=== PATIENT | male | born 1980 | race African-American/Black ===

== ENCOUNTER 2024-05-30 09:31 | Inpatient (IN) | payer OTHER, SELFPAY ==
[2024-05-30 10:20] LABS: ALT (SGPT) 18 U/L (8-55); AST (SGOT) 25 U/L (5-34); Albumin 3.7 g/dL (3.5-5.0); Alkaline Phosphatase 79 U/L (40-110); Anion Gap 16 mmol/L (10-20); BUN (Urea Nitrogen) 12 mg/dL (8.9-20.6); Calc. Creatinine Clearance 0 mL/min (70-130); Calcium 8.9 mg/dL (7.8-10.44); Carbon Dioxide 26 mmol/L (22-29); Chloride 99 mmol/L (98-107); Estimated GFR 67; Globulin 3.4 g/dL (2.4-3.5); Glucose 140 mg/dL (70-105); Potassium 3.6 mmol/L (3.5-5.1); Protein, Total 7.1 g/dL (6.0-8.3); Sodium 137 mmol/L (136-145)
[2024-05-30 10:21] LABS: #Basophils 0.05 10x3/uL (0.0-0.2); #Eosinophils Less than 0.03 10x3/uL (0.0-0.7); %Basophils 0.8 % (0.0-1.0); %Eosinophils 0.2 % (0.0-10.0); %Lymphocytes 6.2 % (21.0-51.0); %Monocytes 8.1 % (0.0-10.0); %Neutrophils 84.4 % (42.0-75.0); Hemoglobin 13.6 g/dL (14.0-18.0); Mean Corpuscular HGB CONC 31.6 g/dL (32.0-36.0); Mean Corpuscular Hemoglobin 21.8 pg (27.0-31.0); Platelet Count 266 10x3/uL (130-400); RBC Distribution Width 19.8 % (11.5-14.5); Red Blood Cell (RBC) Count 6.23 mill/uL (4.70-6.10)
[2024-05-30 10:40] LABS: Troponin I 0.011 ng/mL (< 0.028)
[2024-05-30 10:42] LABS: Bacteria/HPF None Seen HPF (None Seen); Bilirubin Negative (Negative); Blood, Urine Negative (Negative); CAUTI Indications for Culture Acute Hematuria; Clarity Clear (Clear); Glucose, Urine (Dipstick) Greater than 1000 mg/dL (Negative); Ketone, Urine 20 mg/dL (Negative); Leukocyte Negative Leu/uL (Negative); Nitrite Negative (Negative); Protein, Urine (Dipstick) 50 mg/dL (Neg-Trace); RBC/HPF None Seen HPF (0-3); Specific Gravity, Urine 1.035 (1.002-1.036); Squamous Epithelial None Seen HPF (0-3); WBC/HPF 0-3 HPF (0-3); pH, Urine 6.5 (5.0-9.0)
[2024-05-30 10:52] LABS: INR-International Normal Ratio 1.4; PTT 30.6 sec (22.9-36.1); Prothrombin Time 17.1 sec (12.0-14.7)
[2024-05-30 11:02] LABS: Urine Culture Reflex No No
[2024-05-30 11:08] LABS: Amphetamine Not Detected (NotDetected); Barbiturates Screen Not Detected (NotDetected); Benzodiazepine Screen Not Detected (NotDetected); Cocaine Metabolite Screen Not Detected (NotDetected); Methadone Not Detected (NotDetected); Methamphetamine Not Detected (NotDetected); Opiate Screen Not Detected (NotDetected); Oxycodone Screen Not Detected (NotDetected); Phencyclidine (PCP) Not Detected (NotDetected); THC/Cannabinoid Screen Not Detected (NotDetected); Tricyclic Screen Not Detected (NotDetected)
[2024-05-30] MEDS ORDERED: Oseltamivir 75 MG CAP ONE (11:14)
[2024-05-30] MEDS ORDERED: Lorazepam 2 MG/ML VIAL ONE (11:15)
[2024-05-30] MEDS ORDERED: cefTRIAXone (ROCEPHIN) 1 GM VIAL ONE (11:16)
[2024-05-30] MEDS ORDERED: Ipratropium/Albuterol 3 ML NEB ONE (11:23)
[2024-05-30] MEDS ORDERED: Furosemide 40 MG (4 mL) VIAL ONE (11:23)
[2024-05-30 11:24] LABS: Anisocytosis MODERATE=16-30 cells HPF (0-5); Elliptocytes SLIGHT = 2-5 cells HPF (0-1); Microcytosis SLIGHT = 6-15 cells HPF (0-5); Ovalocytes MODERATE= 6-15 cells HPF (0-1); Platelet Adequacy Comment Platelets Normal; Poikilocytosis MODERATE=16-30 cells HPF (0-5); Polychromasia MODERATE = 3-4 cells HPF (0-2); Schistocytes SLIGHT = 2-5 cells HPF (0-1); Target Cells MODERATE= 6-15 cells HPF (0-1)
[2024-05-30 12:02] LABS: Acetaminophen Less than 10 mcg/mL (Less than 10); Alcohol Less than 10.0 mg/dL (Less than 10); Salicylate Less than 8.0 mg/dL (Less than 8.0)
[2024-05-30 13:05] LABS: Lactic Acid 3.84 mmol/L (0.5-2.2)
[2024-05-30 13:14] LABS: Actual Bicarbonate (HCO3a) 26.9 mEq/L (22-28); Analyzer IN Cardio ER; CO2 Tension 38.7 mmHg (35.0-45.0); Calcium, Ionized (arterial) 1.12 mmol/L (1.12-1.30); Carboxyhemoglobin (COHb) 1.9 gm% (0.0-3.0); Hematocrit-ABG 43 % (42.0-52.0); Hemoglobin (Hb) 14.5 g/dL (14.0-18.0); Potassium - ABG Lab 3.51 mmol/L (3.70-5.30)
[2024-05-30 13:18] LABS: ALV-art Gradient 56.755 mmHg (0-20); O2 Tension (PaO2), arterial 44.6 mmHg (80.0-100.0); Puncture Site Left Radial artery
[2024-05-30] MEDS ORDERED: Acetaminophen 650 MG Suppository PR PRN (14:27)
[2024-05-30] MEDS ORDERED: Ondansetron ODT 4 MG TAB PO PRN (14:27)
[2024-05-30 15:19] LABS: Lactic Acid 2.32 mmol/L (0.5-2.2)
[2024-05-30] MEDS ORDERED: Iopamidol-370 76% 500 ML MDV (1 ML CHARGE) ONE (15:29)
[2024-05-30] MEDS ORDERED: Ipratropium/Albuterol 3 ML NEB NEB PRN (15:55)
[2024-05-30] MEDS ORDERED: Insulin Regular, Human 100 UNIT/ML 10 ML VIAL SC PRN (16:00)
[2024-05-30] MEDS ORDERED: Dextrose 50% Abboject 50 ML SYRINGE SLOW IVP PRN (16:00)
[2024-05-30] MEDS ORDERED: Dextrose 5% in Water 1,000 ML IV PRN (16:00)
[2024-05-30] MEDS ORDERED: Glucagon 1 MG/ML KIT IM PRN (16:00)
[2024-05-30] MEDS: Azithromycin 500 MG in Sodium Chloride 0.9% 250 ML 250 ML IVPB SCH (16:16)
[2024-05-30] MEDS: Sodium Chloride 0.9% 500 ML IV SCH (16:30)
[2024-05-30] MEDS: Insulin Regular, Human 100 UNIT/ML 10 ML VIAL SC PRN (17:40)
[2024-05-30] MEDS: Guaifenesin DM 100-10/5 ML UDCUP PO PRN (20:59)
[2024-05-30] MEDS ORDERED: Oseltamivir 75 MG CAP PO SCH ×2 (21:00)
[2024-05-31 04:31] LABS: #Basophils 0.04 10x3/uL (0.0-0.2); #Eosinophils Less than 0.03 10x3/uL (0.0-0.7); %Basophils 0.7 % (0.0-1.0); %Monocytes 9.7 % (0.0-10.0); %Neutrophils 75.1 % (42.0-75.0); Hematocrit 38.9 % (42.0-52.0); Hemoglobin 12.6 g/dL (14.0-18.0); Mean Corpuscular HGB CONC 32.4 g/dL (32.0-36.0); Mean Corpuscular Hemoglobin 21.8 pg (27.0-31.0); Mean Corpuscular Volume 67.2 fL (78.0-98.0); Platelet Count 210 10x3/uL (130-400); Red Blood Cell (RBC) Count 5.79 mill/uL (4.70-6.10)
[2024-05-31 04:37] LABS: Anion Gap 18 mmol/L (10-20); BUN (Urea Nitrogen) 14 mg/dL (8.9-20.6); Calc. Creatinine Clearance 95 mL/min (70-130); Calcium 8.5 mg/dL (7.8-10.44); Carbon Dioxide 19 mmol/L (22-29); Chloride 99 mmol/L (98-107); Estimated GFR 69; Glucose 125 mg/dL (70-105); Potassium 3.9 mmol/L (3.5-5.1); Sodium 132 mmol/L (136-145)
[2024-05-31] MEDS: Furosemide 40 MG (4 mL) VIAL SLOW IVP SCH (09:05)
[2024-05-31] MEDS: Enoxaparin 40 MG (0.4 mL) SYRINGE SC SCH (09:05)
[2024-05-31] MEDS: Pantoprazole 40 MG DR.TAB PO SCH (09:05)
[2024-05-31] MEDS: cefTRIAXone\\ROCEPHIN 1 GM in Sodium Chloride 0.9% 100 ML IVPB SCH (12:55)
[2024-05-31 16:38] LABS: Legionella Urinary Ag Negative (Negative)
[2024-05-31 16:39] LABS: Strep pneumo Urine Ag NEGATIVE (NEGATIVE)
[2024-05-31] MEDS: Sodium Chloride 0.9% 1,000 ML IV SCH ×2 (17:26→20:46)
[2024-05-31] MEDS: Piperacillin/Tazobactam 3.375 GM in Sodium Chloride 0.9% 100 ML IVPB SCH ×2 (17:29→21:24)
[2024-05-31 17:59] LABS: Actual Bicarbonate (HCO3v) 22.6 mEq/L (22-28); Calcium, Ionized (venous) 1.07 mmol/L (1.16-1.32); Chloride (VBG) 95 mmol/L (98-106); Hematocrit-VBG 42 % (42.0-52.0); Hemoglobin (Hb) 14.2 g/dL (13.2-17.3); Potassium (VBG) 4.24 mmol/L (3.70-5.30); Sodium 131 mmol/L (133-146); pH (venous) 7.389 (7.32-7.43)
[2024-05-31] MEDS ORDERED: Piperacillin/Tazobactam 4.5 GM in Sodium Chloride 0.9% 100 ML IVPB SCH (18:00)
[2024-05-31] MEDS: Lidocaine 2% Viscous Solution 20 ML, Aluminum & Magnesium Hydroxide 30 ML, Donnatal Eli... SSW SCH (18:02)
[2024-05-31] MEDS: Vancomycin (BATCH) 2.5 GM in Premix 1 BAG IVPB SCH (18:04)
[2024-05-31 18:13] LABS: Hematocrit 40.6 % (42.0-52.0); Hemoglobin 12.8 g/dL (14.0-18.0); Mean Corpuscular HGB CONC 31.5 g/dL (32.0-36.0); Mean Corpuscular Hemoglobin 21.7 pg (27.0-31.0); Mean Corpuscular Volume 68.9 fL (78.0-98.0); Platelet Count 220 10x3/uL (130-400); RBC Distribution Width 19.2 % (11.5-14.5); Red Blood Cell (RBC) Count 5.89 mill/uL (4.70-6.10)
[2024-05-31 18:14] LABS: INR-International Normal Ratio 1.6; PTT 38.5 sec (22.9-36.1); Prothrombin Time 18.8 sec (12.0-14.7)
[2024-05-31 18:21] LABS: ALT (SGPT) 29 U/L (8-55); AST (SGOT) 66 U/L (5-34); Albumin 3.2 g/dL (3.5-5.0); Alkaline Phosphatase 74 U/L (40-110); Anion Gap 16 mmol/L (10-20); BUN (Urea Nitrogen) 18 mg/dL (8.9-20.6); Bilirubin, Total 0.9 mg/dL (0.2-1.2); Calc. Creatinine Clearance 82 mL/min (70-130); Calcium 8.5 mg/dL (7.8-10.44); Carbon Dioxide 21 mmol/L (22-29); Chloride 98 mmol/L (98-107); Estimated GFR 58; Globulin 3.3 g/dL (2.4-3.5); Glucose 183 mg/dL (70-105); Potassium 4.4 mmol/L (3.5-5.1); Protein, Total 6.5 g/dL (6.0-8.3); Sodium 131 mmol/L (136-145)
[2024-05-31 18:22] LABS: ALT (SGPT) 30 U/L (8-55); AST (SGOT) 66 U/L (5-34); Albumin 3.2 g/dL (3.5-5.0); Alkaline Phosphatase 81 U/L (40-110); Bilirubin, Direct 0.5 mg/dL (0.1-0.3); Bilirubin, Total 0.9 mg/dL (0.2-1.2); Protein, Total 6.4 g/dL (6.0-8.3)
[2024-05-31 18:25] LABS: Troponin I 0.041 ng/mL (< 0.028)
[2024-05-31 18:39] LABS: Amphetamine Not Detected (NotDetected); Barbiturates Screen Not Detected (NotDetected); Benzodiazepine Screen Detected (NotDetected); Cocaine Metabolite Screen Not Detected (NotDetected); Methadone Not Detected (NotDetected); Methamphetamine Not Detected (NotDetected); Opiate Screen Not Detected (NotDetected); Oxycodone Screen Not Detected (NotDetected); Phencyclidine (PCP) Not Detected (NotDetected); THC/Cannabinoid Screen Not Detected (NotDetected); Tricyclic Screen Not Detected (NotDetected)
[2024-05-31] MEDS ORDERED: Lactated Ringer's 1,000 ML IV SCH (19:00)
[2024-05-31] MEDS ORDERED: Vancomycin 1 GM in Premix 1 BAG IVPB SCH (21:00)
[2024-05-31] MEDS ORDERED: Pantoprazole 40 MG DR.TAB PO SCH (21:00)
[2024-05-31] MEDS: Piperacillin/Tazobactam 3.375 GM VIAL ONE (21:08)
[2024-05-31 21:10] LABS: Lactic Acid 1.56 mmol/L (0.5-2.2)
[2024-06-01 04:27] LABS: #Basophils 0.04 10x3/uL (0.0-0.2); #Eosinophils Less than 0.03 10x3/uL (0.0-0.7); %Lymphocytes 27.2 % (21.0-51.0); %Monocytes 6.4 % (0.0-10.0); %Neutrophils 65.1 % (42.0-75.0); Hematocrit 40.3 % (42.0-52.0); Hemoglobin 12.7 g/dL (14.0-18.0); Mean Corpuscular HGB CONC 31.5 g/dL (32.0-36.0); Mean Corpuscular Hemoglobin 21.7 pg (27.0-31.0); Mean Corpuscular Volume 68.9 fL (78.0-98.0); Platelet Count 209 10x3/uL (130-400); RBC Distribution Width 18.6 % (11.5-14.5); Red Blood Cell (RBC) Count 5.85 mill/uL (4.70-6.10)
[2024-06-01 04:40] LABS: Vancomycin, Random 20.4 ug/mL (See Comment)
[2024-06-01 04:50] LABS: Anion Gap 15 mmol/L (10-20); BUN (Urea Nitrogen) 22 mg/dL (8.9-20.6); Calc. Creatinine Clearance 77 mL/min (70-130); Calcium 8.3 mg/dL (7.8-10.44); Carbon Dioxide 22 mmol/L (22-29); Chloride 99 mmol/L (98-107); Estimated GFR 54; Glucose 172 mg/dL (70-105); Iron 16 ug/dL (65-175); Iron Binding Capacity, Total 348 mcg/dL (261-462); Magnesium 1.9 mg/dL (1.6-2.6); Potassium 4.1 mmol/L (3.5-5.1); Sodium 132 mmol/L (136-145)
[2024-06-01 04:54] LABS: ALT (SGPT) 32 U/L (8-55); AST (SGOT) 63 U/L (5-34); Albumin 3.2 g/dL (3.5-5.0); Alkaline Phosphatase 74 U/L (40-110); Bilirubin, Direct 0.6 mg/dL (0.1-0.3); Iron 14 ug/dL (65-175); Iron Binding Capacity, Total 331 mcg/dL (261-462); Protein, Total 6.4 g/dL (6.0-8.3)
[2024-06-01] MEDS: Piperacillin/Tazobactam 3.375 GM VIAL ONE ×2 (06:20→22:10)
[2024-06-01] MEDS ORDERED: Midodrine HCl 5 MG TAB PO SCH (08:45)
[2024-06-01] MEDS ORDERED: DOBUTamine 500 mg/250 ml 250 ML IVPB SCH (09:00)
[2024-06-01] MEDS: Albumin 25% 25 GM (100 mL) BOT IVPB SCH ×2 (10:03→12:01)
[2024-06-01] MEDS: Pantoprazole 40 MG DR.TAB PO SCH (10:04)
[2024-06-01] MEDS: Vancomycin 1 GM in Premix 1 BAG IVPB SCH (10:04)
[2024-06-01] MEDS: Ipratropium/Albuterol 3 ML NEB NEB SCH (11:17)
[2024-06-01] MEDS ORDERED: Milrinone 20 MG in Sodium Chloride 0.9% 100 ML IVPB SCH (12:15)
[2024-06-01] MEDS ORDERED: DOBUTAMINE 500 MG/250 ML ONE (13:36)
[2024-06-01] MEDS: Ondansetron PF 4 MG/2 ML Vial IVP PRN (13:46)
[2024-06-02] MEDS: Albumin 25% 25 GM (100 mL) BOT IVPB SCH (02:51)
[2024-06-02 04:14] LABS: #Basophils 0.03 10x3/uL (0.0-0.2); #Eosinophils Less than 0.03 10x3/uL (0.0-0.7); %Basophils 0.6 % (0.0-1.0); %Lymphocytes 28.8 % (21.0-51.0); %Monocytes 8.1 % (0.0-10.0); %Neutrophils 62.3 % (42.0-75.0); Hematocrit 34.3 % (42.0-52.0); Hemoglobin 10.7 g/dL (14.0-18.0); Mean Corpuscular HGB CONC 31.2 g/dL (32.0-36.0); Mean Corpuscular Hemoglobin 21.5 pg (27.0-31.0); Platelet Count 166 10x3/uL (130-400); RBC Distribution Width 18.2 % (11.5-14.5); Red Blood Cell (RBC) Count 4.97 mill/uL (4.70-6.10)
[2024-06-02 04:31] LABS: Anion Gap 11 mmol/L (10-20); BUN (Urea Nitrogen) 19 mg/dL (8.9-20.6); Calc. Creatinine Clearance 0 mL/min (70-130); Calcium 8.5 mg/dL (7.8-10.44); Carbon Dioxide 23 mmol/L (22-29); Chloride 102 mmol/L (98-107); Estimated GFR 64; Glucose 140 mg/dL (70-105); Magnesium 1.9 mg/dL (1.6-2.6); Potassium 3.1 mmol/L (3.5-5.1); Sodium 133 mmol/L (136-145)
[2024-06-02] MEDS ORDERED: Electrolyte Replacement Protocol FS PRN (08:15)
[2024-06-02] MEDS ORDERED: Electrolyte Replacement Protocol 1 EACH FS SCH (08:15)
[2024-06-02] MEDS ORDERED: Potassium Chloride 20 MEQ in Premix 1 BAG IVPB SCH (08:30)
[2024-06-02] MEDS: Magnesium 2 GM/50 ML(in water) 2 GM in Premix 1 BAG IVPB SCH (09:37)
[2024-06-02] MEDS: Vancomycin 1.5 GRAM/300 ML BAG 1.5 GM in Premix 1 BAG IVPB SCH (10:52)
[2024-06-02] MEDS: Potassium Chloride 20 MEQ in Premix 1 BAG IVPB SCH (10:55)
[2024-06-02] MEDS: Promethazine HCl 25 MG in Sodium Chloride 0.9% 50 ML IVPB PRN (16:58)
[2024-06-02] MEDS: Amiodarone 450 MG in Dextrose 5% in Water 250 ML IVPB SCH (18:57)
[2024-06-02] MEDS: Benzonatate 100 MG CAP PO SCH (18:57)
[2024-06-02] MEDS: Ipratropium/Albuterol 3 ML NEB NEB PRN (23:14)
[2024-06-03] MEDS: Benzocaine/Menthol 1 LOZ LOZ PO PRN (00:51)
[2024-06-03 04:15] LABS: #Basophils 0.03 10x3/uL (0.0-0.2); #Eosinophils Less than 0.03 10x3/uL (0.0-0.7); %Basophils 0.6 % (0.0-1.0); %Lymphocytes 34.5 % (21.0-51.0); %Monocytes 9.4 % (0.0-10.0); %Neutrophils 55.1 % (42.0-75.0); Hematocrit 34.4 % (42.0-52.0); Hemoglobin 11.4 g/dL (14.0-18.0); Mean Corpuscular HGB CONC 33.1 g/dL (32.0-36.0); Mean Corpuscular Hemoglobin 22.1 pg (27.0-31.0); Mean Corpuscular Volume 66.7 fL (78.0-98.0); Platelet Count 163 10x3/uL (130-400); RBC Distribution Width 18.2 % (11.5-14.5); Red Blood Cell (RBC) Count 5.16 mill/uL (4.70-6.10)
[2024-06-03 04:55] LABS: Vancomycin, Random 6.7 ug/mL (See Comment)
[2024-06-03 04:56] LABS: Anion Gap 13 mmol/L (10-20); BUN (Urea Nitrogen) 17 mg/dL (8.9-20.6); Calc. Creatinine Clearance 91 mL/min (70-130); Calcium 8.3 mg/dL (7.8-10.44); Carbon Dioxide 20 mmol/L (22-29); Chloride 103 mmol/L (98-107); Estimated GFR 67; Glucose 133 mg/dL (70-105); Magnesium 2.2 mg/dL (1.6-2.6); Potassium 3.4 mmol/L (3.5-5.1); Sodium 133 mmol/L (136-145)
[2024-06-03 04:57] LABS: ALT (SGPT) 22 U/L (8-55); AST (SGOT) 35 U/L (5-34); Albumin 3.6 g/dL (3.5-5.0); Alkaline Phosphatase 53 U/L (40-110); Protein, Total 6.4 g/dL (6.0-8.3)
[2024-06-03] MEDS: Vancomycin 1.5 GRAM/300 ML BAG 1.5 GM in Premix 1 BAG IVPB SCH (07:03)
[2024-06-03] MEDS: Potassium Chloride 20 MEQ TAB PO SCH (08:25)
[2024-06-03] MEDS: guaiFENesin/Codeine 200 mg/20 mg 10 ml Cup PO PRN (08:47)
[2024-06-03 15:18] LABS: Campy jejuni + coli by PCR Negative (Negative); STEC Shiga Toxin 1+2 Negative (Negative); Salmonella spp. by PCR Negative (Negative); Shigella spp + EIEC by PCR Negative (Negative)
[2024-06-03] MEDS: Benzonatate 100 MG CAP PO PRN (20:34)
[2024-06-04 03:39] LABS: Hematocrit 35.8 % (42.0-52.0); Hemoglobin 11.3 g/dL (14.0-18.0); Mean Corpuscular HGB CONC 31.6 g/dL (32.0-36.0); Mean Corpuscular Hemoglobin 21.6 pg (27.0-31.0); Mean Corpuscular Volume 68.5 fL (78.0-98.0); Platelet Count 167 10x3/uL (130-400); RBC Distribution Width 18.5 % (11.5-14.5); Red Blood Cell (RBC) Count 5.23 mill/uL (4.70-6.10)
[2024-06-04 03:54] LABS: Anion Gap 14 mmol/L (10-20); BUN (Urea Nitrogen) 16 mg/dL (8.9-20.6); Calc. Creatinine Clearance 115 mL/min (70-130); Calcium 8.4 mg/dL (7.8-10.44); Carbon Dioxide 18 mmol/L (22-29); Chloride 105 mmol/L (98-107); Estimated GFR 83; Glucose 148 mg/dL (70-105); Magnesium 1.9 mg/dL (1.6-2.6); Potassium 3.7 mmol/L (3.5-5.1); Sodium 133 mmol/L (136-145)
[2024-06-04 03:59] LABS: Band 1 % (5-11); Eosinophils 10 % (0-10); Hypochromia SLIGHT = 6-15 cells (100X) (0-5/hpf); Lymphocytes 20 % (21-51); Monocytes 3 % (0-10); Neutrophil 62 % (42-75); Ovalocytes SLIGHT = 2-5 cells (100X) (0-1/hpf); Plasma Cells 0 % (0-0); Platelet Adequacy Comment Appears Adequate; Reactive Lymphocytes 4 % (0-10); Target Cells SLIGHT = 2-5 cells (100X) (0-1/hpf); Total Cell Count 100
[2024-06-04] MEDS: Magnesium 2 GM/50 ML(in water) 2 GM in Premix 1 BAG IVPB SCH (07:47)
[2024-06-04] MEDS: Dapagliflozin Propanediol 10 MG TAB PO SCH (12:53)
[2024-06-04] MEDS: Sacubitril 24MG/Valsartan 26 MG TAB PO SCH ×2 (12:53→22:13)
[2024-06-04] MEDS: Vancomycin 1 GM in Premix 1 BAG IVPB SCH (14:54)
[2024-06-04] MEDS: Acetaminophen 325 MG TAB PO PRN (22:14)
[2024-06-05] MEDS: Magnesium 2 GM/50 ML(in water) 2 GM in Premix 1 BAG IVPB SCH (09:42)
[2024-06-05] MEDS: Oseltamivir 75 MG CAP PO SCH (10:53)
[2024-06-05] MEDS: Amiodarone 200 MG TAB PO SCH (21:06)
[2024-06-06 03:59] LABS: Hematocrit 41.4 % (42.0-52.0); Hemoglobin 13.2 g/dL (14.0-18.0); Mean Corpuscular HGB CONC 31.9 g/dL (32.0-36.0); Mean Corpuscular Hemoglobin 21.2 pg (27.0-31.0); Mean Corpuscular Volume 66.3 fL (78.0-98.0); Platelet Count 235 10x3/uL (130-400); Red Blood Cell (RBC) Count 6.24 mill/uL (4.70-6.10)
[2024-06-06 04:40] LABS: Vancomycin, Random 23.1 ug/mL (See Comment)
[2024-06-06 04:43] LABS: BUN (Urea Nitrogen) 5 mg/dL (8.9-20.6); Calc. Creatinine Clearance 143 mL/min (70-130); Calcium 8.5 mg/dL (7.8-10.44); Carbon Dioxide 20 mmol/L (22-29); Estimated GFR 111; Glucose 126 mg/dL (70-105); Magnesium 2.1 mg/dL (1.6-2.6)
[2024-06-06 05:15] LABS: Anisocytosis MODERATE=16-30 cells HPF (0-5); Burr Cells SLIGHT = 2-5 cells HPF (0-1); Large Platelets 66.3 % (0-5); Lymphocytes 7 % (21-51); Microcytosis SLIGHT = 6-15 cells HPF (0-5); Monocytes 7 % (0-10); Neutrophil 84 % (42-75); Nucleated RBC (Manual Ct) 1 % (0); Platelet Adequacy Comment Platelets Normal; Polychromasia SLIGHT = 2-3 cells HPF (0-2); Reactive Lymphocytes 2 % (0-10); Smudge Cells 17.8 %; Spherocytes SLIGHT = 1-5 cells HPF (None Seen); Target Cells SLIGHT = 2-5 cells HPF (0-1)
[2024-06-06 05:35] LABS: Anion Gap 13 mmol/L (10-20); Chloride 109 mmol/L (98-107); Potassium 3.2 mmol/L (3.5-5.1); Sodium 138 mmol/L (136-145)
[2024-06-06] MEDS: Potassium Chloride 20 MEQ TAB PO SCH (08:23)
[2024-06-06] MEDS: Vancomycin 1 GM/200 ML (FROZEN) BAG ONE (13:21)
[2024-06-06 15:30] LABS: Potassium 3.5 mmol/L (3.5-5.1)
[2024-06-06] MEDS: Aspirin 81 mg Enteric Coated Tablet PO SCH (16:26)
[2024-06-06] MEDS: Amoxicillin/Potassium Clav 875 MG TAB PO SCH (20:44)
[2024-06-06] MEDS: Benzonatate 100 MG CAP PO SCH (20:46)
[2024-06-07 04:27] LABS: Magnesium 2.2 mg/dL (1.6-2.6)
[2024-06-07 04:28] LABS: Anion Gap 15 mmol/L (10-20); BUN (Urea Nitrogen) 5 mg/dL (8.9-20.6); Calc. Creatinine Clearance 128 mL/min (70-130); Calcium 8.8 mg/dL (7.8-10.44); Carbon Dioxide 18 mmol/L (22-29); Chloride 109 mmol/L (98-107); Estimated GFR 101; Glucose 188 mg/dL (70-105); Potassium 3.6 mmol/L (3.5-5.1); Sodium 138 mmol/L (136-145)
[2024-06-07 04:34] LABS: Hematocrit 41.2 % (42.0-52.0); Hemoglobin 12.9 g/dL (14.0-18.0); Mean Corpuscular HGB CONC 31.3 g/dL (32.0-36.0); Mean Corpuscular Hemoglobin 21.2 pg (27.0-31.0); Mean Corpuscular Volume 67.7 fL (78.0-98.0); Platelet Count 382 10x3/uL (130-400); RBC Distribution Width 20.2 % (11.5-14.5); Red Blood Cell (RBC) Count 6.09 mill/uL (4.70-6.10)
[2024-06-07 04:36] LABS: #Basophils 0.03 10x3/uL (0.0-0.2); %Basophils 0.3 % (0.0-1.0); %Eosinophils 0.8 % (0.0-10.0); %Lymphocytes 22.6 % (21.0-51.0); %Monocytes 11.5 % (0.0-10.0); %Neutrophils 64.5 % (42.0-75.0)
[2024-06-07] MEDS: Torsemide 20 MG TAB PO SCH (08:19)
[2024-06-07 14:32] VITALS: BMI 30.2
[2024-06-08 12:45] VITALS: BP 115/79; TEMP 98.1
== END 2024-06-08 14:42 | disposition home or self-care (01) | DRG 193 ==
LOC: ERS 09:31 → INTOOBSV 14:28 → OBS 14:28 → OBSVTOIN 15:21 → CCU 15:25 → PCU 05-31 05:48 → IMCU/EMU 06-03 01:37 → PCU 06-05 19:38
PROVIDERS: ADMIT Internal Medicine; ATTEND Hospitalist
DX: J10.01 Influenza due to other identified influenza virus with the same other identified influenza virus pneumonia (principal); J96.01 Acute respiratory failure with hypoxia; I42.8 Other cardiomyopathies; N17.9 Acute kidney failure, unspecified; G93.49 Other encephalopathy; I82.612 Acute embolism and thrombosis of superficial veins of left upper extremity; E11.9 Type 2 diabetes mellitus without complications; E78.5 Hyperlipidemia, unspecified; I11.0 Hypertensive heart disease with heart failure; I50.9 Heart failure, unspecified; E87.6 Hypokalemia; Z91.148 Patient's other noncompliance with medication regimen for other reason
CPT/HCPCS: 36415; 36416; 36600; 70450; 71045; 71275; 74018; 74174; 76705; 80048; 80053; 80076; 80202; 80306; 80307; 81001; 82533; 82550; 82728; 82805; 83036; 83540; 83550; 83605; 83630; 83690; 83735; 83880; 84484; 85025; 85046; 85379; 85610; 85730; 86850; 86900; 86901; 87040; 87081; 87086; 87177; 87324; 87428; 87449; 87505; 87899; 93005; 93010; 93306; 94640; 94760; 96365; 96375; G0378; J0282; J0456; J0696; J1250; J1650; J1815; J1940; J2060; J2260; J2405; J2543; J2550; J3370; J3475; J3480; J7030; J7050; J7070; J7620; P9047; Q9967